=== PATIENT | male | born 1995 | race Hispanic/Latino ===

== ENCOUNTER 2021-11-11 20:09 | Inpatient (IN) | payer OTHER ==
[~2021-11-11 20:09] MED LIST: Iopamidol-370 76% 500 ML 1 ML ONE
[2021-11-11] MEDS ORDERED: Propofol 1,000 MG/100 ML VIAL IV ONE (20:12)
[2021-11-11] MEDS ORDERED: Boostrix 0.5 ML (Tdap) VIAL ONE (20:14)
[2021-11-11] MEDS ORDERED: CEFAZOLIN 1 GM VIAL ONE (20:14)
[2021-11-11 20:33] LABS: Hemoglobin 13.8 g/dL (14.0-18.0); Mean Corpuscular HGB CONC 34.8 g/dL (32.0-36.0); Mean Corpuscular Hemoglobin 31.6 pg (27.0-31.0); Mean Corpuscular Volume 90.6 fL (78.0-98.0); Mean Platelet Volume 6.7 fL (7.4-10.4); Platelet Count 259 thou/uL (130-400); RBC Distribution Width 11.2 % (11.5-14.5); Red Blood Cell (RBC) Count 4.36 mill/uL (4.70-6.10); White Blood Cell (WBC) Count 25.9 thou/uL (4.8-10.8)
[2021-11-11 20:40] LABS: INR-International Normal Ratio 1.2; PTT 24.6 sec (22.9-36.1); Prothrombin Time 15.3 sec (12.0-14.7)
[2021-11-11 20:50] LABS: Band 15 % (5-11); Lymphocytes 1 % (21-51); MDiff Complete? YES; Monocytes 11 % (0-10); Neutrophil 72 % (42-75); Platelet Morphology Comment Appears Adequate; RBC Morphology Normal; Reactive Lymphocytes 1 % (0-10); Vacuoles SLIGHT
[2021-11-11 20:52] LABS: ALT (SGPT) 27 U/L (8-55); AST (SGOT) 31 U/L (5-34); Albumin 4.2 g/dL (3.5-5.0); Alkaline Phosphatase 56 U/L (40-110); Anion Gap 13 mmol/L (10-20); BUN (Urea Nitrogen) 12 mg/dL (8.9-20.6); Bilirubin, Total 1.4 mg/dL (0.2-1.2); Calc. Creatinine Clearance 0 mL/min (70-130); Calcium 8.6 mg/dL (7.8-10.44); Carbon Dioxide 23 mmol/L (22-29); Chloride 99 mmol/L (98-107); Globulin 2.9 g/dL (2.4-3.5); Glucose 114 mg/dL (70-105); Potassium 3.7 mmol/L (3.5-5.1); Protein, Total 7.1 g/dL (6.0-8.3); Sodium 131 mmol/L (136-145)
[2021-11-11] MEDS ORDERED: Dextrose 5% in Water 1,000 ML IV PRN (20:58)
[2021-11-11] MEDS ORDERED: hydrALAZINE 20 MG/ML VIAL SLOW IVP PRN (20:58)
[2021-11-11] MEDS ORDERED: Ondansetron PF 4 MG/2 ML Vial IVP PRN (20:58)
[2021-11-11] MEDS ORDERED: Dextrose 50% Abboject 50 ML SYRINGE SLOW IVP PRN (20:58)
[2021-11-11] MEDS ORDERED: Sodium Chloride 0.9% 1,000 ML IV SCH (21:00)
[2021-11-11] MEDS ORDERED: Acetaminophen 650 MG/20.3 ML UDCUP PER TUBE PRN (21:03)
[2021-11-11] MEDS ORDERED: Ventilator Sedation Protocol 1 EACH FS ONE (21:04)
[2021-11-11] MEDS ORDERED: fentaNYL Citrate-0.9 % NaCl/PF 100 ML IVPB SCH (21:45)
[2021-11-11] MEDS ORDERED: DISCONTINUE PREVIOUS NARCOTIC PAIN MEDICATIONS AND BENZODIAZEPINES FS SCH (21:45)
[2021-11-11] MEDS ORDERED: Lorazepam 2 MG/ML VIAL SLOW IVP PRN (21:45)
[2021-11-11] MEDS ORDERED: Fentanyl BOLUS 250 ML IVPB PRN (21:45)
[2021-11-11] MEDS ORDERED: Propofol BOLUS 1,000 MG/100 ML VIAL IV PRN (21:45)
[2021-11-11] MEDS ORDERED: Morphine 2 MG/ML VIAL SLOW IVP PRN (21:45)
[2021-11-11] MEDS ORDERED: Fentanyl CADD 100 ML IV SCH (21:45)
[2021-11-11 22:10] LABS: SARS-CoV-2 NAA Rapid Test Not Detected (NotDetected)
[2021-11-11 23:10] LABS: Actual Bicarbonate (HCO3a) 21.5 mEq/L (22-28); Base Excess (BEa) -2.9 mEq/L (-2.0 to +3.0); CO2 Tension 36.3 mmHg (35.0-45.0); Calcium, Ionized (arterial) 1.12 mmol/L (1.12-1.30); Carboxyhemoglobin (COHb) 0.1 gm% (0.0-3.0); Hemoglobin (Hb) 12.9 g/dL (14.0-18.0); O2 Tension (PaO2), arterial 147.1 mmHg (80.0-100.0); Potassium - ABG Lab 3.57 mmol/L (3.70-5.30); pH, Arterial 7.39 (7.35-7.45)
[2021-11-11 23:11] LABS: ALV-art Gradient 21.425 mmHg (0-20); Puncture Site RBR
[2021-11-11 23:25] LABS: Actual Bicarbonate (HCO3a) 21.8 mEq/L (22-28); Analyzer IN Cardio ER; Base Excess (BEa) -1.7 mEq/L (-2.0 to +3.0); CO2 Tension 33.4 mmHg (35.0-45.0); Calcium, Ionized (arterial) 1.08 mmol/L (1.12-1.30); Carboxyhemoglobin (COHb) 0.3 gm% (0.0-3.0); Hemoglobin (Hb) 13.6 g/dL (14.0-18.0); O2 Tension (PaO2), arterial 312.4 mmHg (80.0-100.0); Potassium - ABG Lab 3.56 mmol/L (3.70-5.30); pH, Arterial 7.43 (7.35-7.45)
[2021-11-11 23:27] LABS: Puncture Site RRA
[2021-11-11 23:37] LABS: Lactic Acid 1.8 mmol/L (0.5-2.2)
[2021-11-11] MEDS: Famotidine/PF 20 mg/2ml Vial SLOW IVP SCH (23:57)
[2021-11-11] MEDS: Sodium Chloride 0.9% 1,000 ML IV SCH (23:59)
[2021-11-12] MEDS: Propofol 1,000 MG/100 ML VIAL IV PRN ×3 (00:02→06:14)
[2021-11-12 00:12] LABS: Bilirubin Negative (Negative); Blood, Urine Negative (Negative); Clarity Clear (Clear); Glucose, Urine (Dipstick) Normal (Negative); Ketone, Urine Negative (Negative); Leukocyte Negative Leu/uL (Negative); Nitrite Negative (Negative); Protein, Urine (Dipstick) 20 mg/dL (Neg-Trace); Specific Gravity, Urine 1.045 (1.002-1.036); Urobilinogen Normal mg/dL (Less than 2)
[2021-11-12 00:45] LABS: Amphetamine Not Detected (NotDetected); Barbiturates Screen Not Detected (NotDetected); Benzodiazepine Screen Not Detected (NotDetected); Cocaine Metabolite Screen Not Detected (NotDetected); Methadone Not Detected (NotDetected); Methamphetamine Not Detected (NotDetected); Opiate Screen Not Detected (NotDetected); Oxycodone Screen Not Detected (NotDetected); Phencyclidine (PCP) Not Detected (NotDetected); THC/Cannabinoid Screen Not Detected (NotDetected); Tricyclic Screen Not Detected (NotDetected)
[2021-11-12 01:22] VITALS: BMI 29.0
[2021-11-12 04:22] LABS: Anion Gap 13 mmol/L (10-20); BUN (Urea Nitrogen) 11 mg/dL (8.9-20.6); Calc. Creatinine Clearance 122 mL/min (70-130); Carbon Dioxide 22 mmol/L (22-29); Chloride 108 mmol/L (98-107); Glucose 105 mg/dL (70-105); Magnesium 2.4 mg/dL (1.6-2.6); Potassium 3.9 mmol/L (3.5-5.1); Sodium 139 mmol/L (136-145)
[2021-11-12 04:26] LABS: Phosphorus 5.2 mg/dL (2.3-4.7)
[2021-11-12 04:27] LABS: #Lymphocytes 2.6 thou/uL (1.20-3.40); #Monocytes 1.6 thou/uL (0.11-0.59); #Neutrophils 9.5 thou/uL (1.40-6.50); %Basophils 0.2 % (0.0-1.0); %Eosinophils 0.1 % (0.0-10.0); %Lymphocytes 19.1 % (21.0-51.0); %Monocytes 11.5 % (0.0-10.0); %Neutrophils 69.1 % (42.0-75.0); Mean Corpuscular HGB CONC 34.2 g/dL (32.0-36.0); Mean Corpuscular Hemoglobin 32.2 pg (27.0-31.0); Mean Corpuscular Volume 94.1 fL (78.0-98.0); Mean Platelet Volume 7.3 fL (7.4-10.4); Platelet Count 223 thou/uL (130-400); RBC Distribution Width 11.2 % (11.5-14.5); Red Blood Cell (RBC) Count 4.03 mill/uL (4.70-6.10); White Blood Cell (WBC) Count 13.8 thou/uL (4.8-10.8)
[2021-11-12 07:14] LABS: Actual Bicarbonate (HCO3a) 23.5 mEq/L (22-28); Base Excess (BEa) 0.3 mEq/L (-2.0 to +3.0); CO2 Tension 33.5 mmHg (35.0-45.0); Calcium, Ionized (arterial) 1.14 mmol/L (1.12-1.30); Carboxyhemoglobin (COHb) 0.3 gm% (0.0-3.0); Hemoglobin (Hb) 12.9 g/dL (14.0-18.0); O2 Tension (PaO2), arterial 128.6 mmHg (80.0-100.0); Potassium - ABG Lab 3.67 mmol/L (3.70-5.30); pH, Arterial 7.46 (7.35-7.45)
[2021-11-12 07:28] LABS: ALV-art Gradient 43.425 mmHg (0-20); Puncture Site RRA
[2021-11-12] MEDS ORDERED: Haloperidol Lactate 5 MG/ML VIAL ONE (09:08)
[2021-11-12] MEDS ORDERED: Lorazepam 2 MG/ML VIAL ONE (09:09)
[2021-11-12] MEDS ORDERED: Haloperidol Lactate 5 MG/ML VIAL SLOW IVP SCH (09:15)
[2021-11-12] MEDS: Sodium Chloride 0.9% 1,000 ML IV SCH ×2 (09:32→17:44)
[2021-11-12] MEDS: Famotidine/PF 20 mg/2ml Vial SLOW IVP SCH (09:34)
[2021-11-12] MEDS ORDERED: Famotidine 40 MG/4 ML VIAL SLOW IVP SCH (21:00)
[2021-11-12] MEDS: Famotidine 20 MG TAB PO SCH (21:04)
[2021-11-13] MEDS: Sodium Chloride 0.9% 1,000 ML IV SCH (02:13)
[2021-11-13 03:25] LABS: #Eosinphils 0.1 thou/uL (0.0-0.7); #Lymphocytes 2.6 thou/uL (1.20-3.40); #Monocytes 1.1 thou/uL (0.11-0.59); #Neutrophils 5.3 thou/uL (1.40-6.50); %Basophils 0.5 % (0.0-1.0); %Lymphocytes 28.3 % (21.0-51.0); %Monocytes 11.9 % (0.0-10.0); %Neutrophils 58.3 % (42.0-75.0); Hemoglobin 10.5 g/dL (14.0-18.0); Mean Corpuscular HGB CONC 34.9 g/dL (32.0-36.0); Mean Corpuscular Hemoglobin 32.3 pg (27.0-31.0); Mean Corpuscular Volume 92.6 fL (78.0-98.0); Mean Platelet Volume 7.1 fL (7.4-10.4); Platelet Count 174 thou/uL (130-400); RBC Distribution Width 11.4 % (11.5-14.5); Red Blood Cell (RBC) Count 3.24 mill/uL (4.70-6.10); White Blood Cell (WBC) Count 9.1 thou/uL (4.8-10.8)
[2021-11-13 03:51] LABS: Anion Gap 10 mmol/L (10-20); BUN (Urea Nitrogen) 7 mg/dL (8.9-20.6); Calc. Creatinine Clearance 185 mL/min (70-130); Calcium 7.9 mg/dL (7.8-10.44); Carbon Dioxide 24 mmol/L (22-29); Chloride 110 mmol/L (98-107); Glucose 100 mg/dL (70-105); Phosphorus 2.3 mg/dL (2.3-4.7); Potassium 3.6 mmol/L (3.5-5.1); Sodium 140 mmol/L (136-145)
[2021-11-13] MEDS ORDERED: Melatonin 3 MG TAB PO SCH (04:00)
[2021-11-13] MEDS ORDERED: Haloperidol Lactate 5 MG/ML VIAL ONE (05:31)
[2021-11-13] MEDS ORDERED: Haloperidol Lactate 5 MG/ML VIAL SLOW IVP SCH (05:45)
[2021-11-13] MEDS ORDERED: PHOS-NAK 1 PKT PACK PO SCH (07:30)
[2021-11-13] MEDS ORDERED: Potassium Chloride 20 MEQ TAB PO SCH (07:30)
[2021-11-13] MEDS: Famotidine 20 MG TAB PO SCH (08:07)
[2021-11-13] MEDS ORDERED: FLUoxetine HCl 20 MG CAP PO SCH (09:00)
[2021-11-13 12:11] VITALS: BP 141/96
[2021-11-13 13:49] VITALS: TEMP 99.8
[2021-11-13] MEDS ORDERED: Enoxaparin Sodium 40 MG/0.4 ML SYRINGE SC SCH (21:00)
== END 2021-11-13 13:21 | DRG 208 ==
LOC: ERS 20:09 → EEVIPCON 20:22 → CCU 20:22
PROVIDERS: ADMIT Surgery; ATTEND Surgery
PROC: 5A1935Z Respiratory Ventilation, Less than 24 Consecutive Hours (ICD-10-PCS; principal; 2021-11-11)
PROC: 0D9670Z Drainage of Stomach with Drainage Device, Via Natural or Artificial Opening (ICD-10-PCS; 2021-11-11)
PROC: 0HQ0XZZ Repair Scalp Skin, External Approach (ICD-10-PCS; 2021-11-11)
DX: T79.7XXA Traumatic subcutaneous emphysema, initial encounter (principal); J96.00 Acute respiratory failure, unspecified whether with hypoxia or hypercapnia; E87.1 Hypo-osmolality and hyponatremia; Z20.822 Contact with and (suspected) exposure to COVID-19; Z23 Encounter for immunization; S01.01XA Laceration without foreign body of scalp, initial encounter; X83.8XXA Intentional self-harm by other specified means, initial encounter; Y92.148 Other place in prison as the place of occurrence of the external cause; Z78.1 Physical restraint status; W18.12XA Fall from or off toilet with subsequent striking against object, initial encounter; Y93.39 Activity, other involving climbing, rappelling and jumping off
CPT/HCPCS: 36415; 36416; 36600; 70450; 70486; 70498; 71045; 71260; 72125; 74177; 74220; 80048; 80053; 80306; 81003; 82805; 83605; 83735; 83930; 84100; 85025; 85610; 85730; 86850; 86900; 86901; 90715; 94003; G0390; J0690; J1630; J2060; J2704; J7050; Q9967; S0028; U0002